=== PATIENT | female | born 1990 | race African-American/Black ===

== ENCOUNTER 2016-10-01 21:28 | Emergency (ER) | payer OTHER | END 2016-10-01 23:00 | disposition home or self-care (01) | LOC: ER 21:28 | DX: L02.415 Cutaneous abscess of right lower limb (principal) | CPT/HCPCS: 99283 ==

== ENCOUNTER 2016-12-04 23:41 | Emergency (ER) | payer OTHER | END 2016-12-05 04:04 | disposition home or self-care (01) | LOC: ER 23:41 | DX: M25.561 Pain in right knee (principal) | CPT/HCPCS: 73560-RT; 99283 ==